=== PATIENT | female | born 1980 | race Two or more races ===

== ENCOUNTER 2025-04-01 10:08 | Emergency (ER) | payer MEDICAID, OTHER ==
[~2025-04-01] VITALS: Ht 175.3 cm; Wt 141.0 kg
--- NOTE | 2025-04-01 10:30 | ED.PDOC ---
History of Present Illness HPI Comments 44-year-old female presents to the ER with no prior medical history associated with a chief complaint of urinary symptoms. Patient reports on having a possible urinary infection, with burning sensation during urination since of 03/29/2025. Patient states she has been drinking lots of liquids but is really having a hard time urinating as well. Patient has had nausea on and off for the last couple of days as well she believes that is from her urinary tract infection. Patient he is also requesting a refill of her daily medications due from being shaking . Denies chills, fever, N/V/D, SOB, CP Chief Complaint: Urinary Time Seen by MD: 10:35 Reviewed Notes: Nurses Notes, Medications, Allergies Allergies: Coded Allergies: NO KNOWN ALLERGIES (Unverified , 04/01/25) Home Meds Active Scripts Ciprofloxacin Hcl (Cipro) 500 Mg Tab, 500 MG PO BID for 7 Days, #14 TAB Prov:DAGOBERTO MONTAGUE Kaylynn [facility] 04/01/25 Information Source: Patient Mode of Arrival: Ambulatory Severity: Moderate Timing: Days Duration: Since onset, Days Prehospital treatment: None Past Medical History PAST MEDICAL HISTORY: Denies Surgical History: Denies all surgeries BRANCH SERVICE LEADER History: No Pertinent BRANCH SERVICE LEADER History Family History Family History: Reviewed,noncontributory to illness, Unknown Social History Smoker: Non-Smoker Alcohol: Denies ETOH Use Drugs: Denies Drug Use Lives In: Home Constitutional: denies: chills, diaphoresis, fatigue, fever, malaise, sweats, weakness, others EENTM: denies: blurred vision, double vision, ear bleeding, ear discharge, ear drainage, ear pain, ear ringing, eye pain, eye redness, hearing loss, mouth pain, mouth swelling, nasal discharge, nose bleeding, nose congestion, nose pain, photophobia, tearing, throat pain, throat swelling, voice changes, others Respiratory: denies: cough, hemoptysis, orthopnea, SOB at rest, shortness of breath, SOB with excertion, stridor, wheezing, others Cardiovascular: denies: chest pain, dizzy spells, diaphoresis, Dyspnea on exertion, edema, irregular heart beat, left arm pain, lightheadedness, palpitations, PND, syncope, others Gastrointestinal: reports: nausea; denies: abdomen distended, abdominal pain, blood streaked bowels, constipated, diarrhea, dysphagia, difficulty swallowing, hematemesis, melena, poor appetite, poor fluid intake, rectal bleeding, rectal pain, vomiting, others Genitourinary: reports: burning, dysuria, frequency, others (hard to void); denies: abnormal vagina bleeding, dyspareunia, flank pain, hematuria, incontinence, pain, , vagina discharge, urgency Neurological: denies: dizziness, fainting, headache, left sided numbness, left sided weakness, numbness, paresthesia, pre-existing deficit, right sided numbness, right sided weakness, seizure, speech problems, tingling, tremors, weakness, others Musculoskeletal: denies: back pain, gout, joint pain, joint swelling, muscle pain, muscle stiffness, neck pain, others Integumetry: denies: bruises, change in color, change in hair/nails, dryness, laceration, lesions, lumps, rash, wounds, others Allergic/Immunocompromised: denies: Difficulty Healing, Frequent Infections, Hives, Itching, others Hematologic/Lymphatic: denies: anemia, blood clots, easy bleeding, easy bruising, swollen glands, others Endocrine: denies: excessive hunger, excessive sweating, excessive thirst, excessive urination, flushing, intolerance to cold, intolerance to heat, unexplained weight gain, unexplained weight loss, others Psychiatric: denies: anxiety, bipolar disorder, depression, hopeless, panic disorder, schizophrenia, sleepless, suicidal, others All Other Systems: Reviewed and Negative Physical Exam General Appearance: No Apparent Distress, Normal, Obese HEENT: Normal ENT Inspection, Pharynx Normal, TMs Normal Neck: Full Range of Motion, Non-Tender, Normal, Normal Inspection Respiratory: Chest Non-Tender, Lungs Clear, No Accessory Muscle Use, No Respiratory Distress, Normal Breath Sounds Cardiovascular: No Edema, No JVD, No Murmur, No Gallop, Normal Peripheral Pulses, Regular Rate/Rhythm Breast Exam: Deferred Gastrointestinal: No Organomegaly, No Pulsatile Mass, Normal Bowel Sounds, Soft, Suprapubic, Tenderness Genitalia: Deferred Pelvic: Deferred Rectal: Deferred Extremities: No calf tenderness, Normal capillary refill, Normal inspection, Normal range of motion, Non-tender, No pedal edema Musculoskeletal : Apperance: Normal Neurologic: Alert, school bus aide II-XII nml as Tested, No Motor Deficits, Normal Affect, Normal Mood, No Sensory Deficits Cerebellar Function: Normal Reflexes: Normal Skin: Dry, Normal Color, Warm Lymphatic: No Adenopathy Was a procedure done? Was a procedure done?: No Differential Dx Considerations may include: Pyelonephritis versus chronic retention of urine X-Ray, Labs, Meds, VS Vital Signs Date Time Temp Pulse Resp B/P (MAP) Pulse Ox O2 Delivery O2 Flow Rate FiO2 04/01/25 10:14 97.5 110 18 135/100 95 97.5 Lab Test 04/01/25 00:00 Range/Units Urine RBC None seen 0 - 4 /hpf Urine Microscopic WBC 2 0-5 /HPF Urine Squamous Epithelial Cells None seen <5 /hpf Urine Bacteria None seen None Seen /hpf X-Ray, Labs, Meds, VS Comment Patient seen and examined by me. Patient has a history of urinary tract infections before and believes she has a new 1 today. We have given her liquids with a urinalysis to see if she has an infection.. We will also give her Zofran as she feels very nauseous. Patient tried multiple times to urinate without any success. Finally a straight cath was done which showed a significant amount of debris in the urine. Your urinalysis showed minimal infection although I will treat because of the patient's symptoms of retention in the condition of her urine.. She will be sent home on antibiotics. Reinforced bathroom hygiene. If she continues to have retention she needs to be managed with a self catheterization. Patient just moved here and is requesting multiple refills of medications I will give her those meds. Time of 1ST Reevaluation: 11:05 Reevaluation 1ST: Unchanged Time of 2ND Reevaluation: 14:59 Reevaluation 2ND: Improved Patient Education/Counseling: Diagnosis, Treatment, Prognosis Family Education/Counseling: No Family Present SEPSIS Sepsis Screen Date sepsis recognized/suspect: Apr 01, 2025 Time Sepsis recognized/suspect: 1014 Recent Procedure: No On Antibiotic Therapy: No Respiratory Rate >20: No Heart Rate >90: Yes Temp<36 C (96.8 F) or >38.3 C: No SBP <90 or MAP <65 mmHG: No New Acute Mental Status Change: No Is the patient on CPAP, BIPAP,: No Vital Signs Date Time Temp Pulse Resp B/P (MAP) Pulse Ox O2 Delivery O2 Flow Rate FiO2 04/01/25 10:14 97.5 110 18 135/100 95 97.5 Departure 1 Departure Time of Disposition: 14:59 Impression: Primary Impression: Retention, urine Additional Impression: Urinary tract infection Disposition: 01 HOME / SELF CARE / HOMELESS Condition: Good Additional Instructions: Drink a lot of fluids and go to the bathroom often to keep your bladder working Finish all the antibiotics as prescribed take every dose to make sure that you get all the meds correctly She can not go to the bathroom you need to either come back or he needs to see a urologist for further testing e-Prescriptions Ezetimibe (Zetia) 10 Mg Tab 10 MG PO DAILY for 30 Days, #30 TAB Prov: DAGOBERTO MONTAGUE [employer]ILD [employer] CARE PROVIDER 04/01/25 Atenolol (Atenolol) 25 Mg Tab 50 MG PO DAILY for 30 Days, #60 TAB Prov: DAGOBERTO MONTAGUE CHILD DAY CARE PROVIDER 04/01/25 Bupropion Hcl (Bupropion Hcl Xl) 150 Mg Tab 300 MG PO DAILY for 30 Days, #60 TAB Prov: DAGOBERTO MONTAGUE A CHILD DAY CARE PROVIDER 04/01/25 Omeprazole (Gnp Omeprazole) 20 Mg Tab 40 MG PO DAILY, #30 TAB Prov: DAGOBERTO MONTAGUE A CHILD DAY CARE PROVIDER 04/01/25 Lurasidone Hydrochloride (LATUDA) 40 Mg Tab 60 MG PO qhs PRN for 30 Days, #30 TAB Prov: DAGOBERTO MONTAGUE A CHILD DAY CARE PROVIDER 04/01/25 Levothyroxine Sodium (Synthroid) 200 Mcg Tab 1 TAB PO DAILY for 30 Days, #30 TAB 5 Refills Prov: DAGOBERTO MONTAGUE CHILD DAY CARE PROVIDER 04/01/25 Ciprofloxacin Hcl (Cipro) 500 Mg Tab 500 MG PO BID for 7 Days, #14 TAB Prov: DAGOBERTO MONTAGUE CHILD DAY CARE PROVIDER 04/01/25 Discharged With: Self Critical Care Note Critical Care Time?: No Stability Stability form required: No I personally scribed for ER ([email or web address]) on 04/01/25 at 10:30. Electronically monteiro bmitted by Jim Reid ([email or web address]). ER Apr 01, 2025 10:30 DAGOBERTO MONTAGUE CHILD DAY CARE PROVIDER Apr 01, 2025 11:03
[2025-04-01] MEDS ORDERED: CIPR-173 PO (15:00)
[2025-04-01 15:16] VITALS: BP 134/99; PULSE 102; RESP 17; TEMP 98.1; O2SAT 96
[2025-04-01] MEDS ORDERED: OMEP20TA PO (15:21)
[2025-04-01] MEDS ORDERED: LEVO200T PO (15:21)
[2025-04-01] MEDS ORDERED: BUPR150T18 PO (15:21)
[2025-04-01] MEDS ORDERED: EZET10TA22 PO (15:21)
[2025-04-01] MEDS ORDERED: PREG50CA PO (15:21)
[2025-04-01] MEDS ORDERED: ATEN-60 PO (15:21)
[2025-04-01] MEDS ORDERED: LURA40TA2 PO (15:21)
== END 2025-04-01 15:18 | disposition home or self-care (01) ==
LOC: ER 10:08
DX: N39.0 Urinary tract infection, site not specified (principal)
CPT/HCPCS: 51701; 81015